=== PATIENT | male | born 1955 | race African-American/Black ===

== ENCOUNTER 2017-08-01 18:30 | Inpatient (IN) | payer OTHER ==
[~2017-08-01 18:30] MED LIST: Heparin 5,000 UNITS/ML VIAL ONE
[2017-08-01] MEDS ORDERED: Adacel (T-DAP) 0.5 ML VIAL ONE (18:40)
[2017-08-01] MEDS ORDERED: Fentanyl 100 MCG/2 ML VIAL ONE ×5 (18:50→21:59)
[2017-08-01] MEDS ORDERED: Midazolam HCl 2 mg/2 ml Vial ONE (18:54)
[2017-08-01 19:07] LABS: #Eosinphils 0.1 thou/uL (0.0-0.7); #Lymphocytes 1.2 thou/uL (1.20-3.40); #Monocytes 0.3 thou/uL (0.11-0.59); #Neutrophils 3.3 thou/uL (1.40-6.50); %Basophils 0.2 % (0.0-1.0); %Eosinophils 2.8 % (0.0-10.0); %Lymphocytes 24.1 % (21.0-51.0); %Monocytes 6.3 % (0.0-10.0); Hematocrit 35.7 % (42.0-52.0); Mean Platelet Volume 6.4 fL (7.4-10.4); Red Blood Cell (RBC) Count 3.52 mill/uL (4.70-6.10)
[2017-08-01 19:14] LABS: Bilirubin Negative (Negative); Blood, Urine Negative (Negative); Glucose, Urine (Dipstick) Negative (Negative); Ketone, Urine Negative (Negative); Nitrite Negative (Negative); Protein, Urine (Dipstick) 30 mg/dL (Neg-Trace); Urobilinogen 0.2 mg/dL (0.2-1.0)
[2017-08-01 19:15] LABS: PTT 25.1 SEC (22.9-36.1); Prothrombin Time 14.1 SEC (12.0-14.7)
[2017-08-01 19:16] LABS: Bacteria/HPF None Seen HPF (None Seen); Hyaline Casts/LPF 7-10 HYALINE CAST LPF (0-3 Hyaline); RBC/HPF 0-3 HPF (0-3); Squamous Epithelial 0-3 HPF (0-3); WBC/HPF 0-3 HPF (0-3)
[2017-08-01 19:20] LABS: Anion Gap 9 mmol/L (-14-95); Lactate 1.15 mmol/L (0.50-2.20); POC Est. GFR-MDRD-African-Amer 56 (2-60); POC Estimated GFR-MDRD 46 (2-60); T. Carbon Dioxide 26.8 mmol/L (1.0-85.0); pH (Venous) 7.309 (7.35-7.45); vO2 Saturation-calc 67.1 % (0.0-100.0)
[2017-08-01 19:23] LABS: ALT (SGPT) Less than 7 U/L (8-55); AST (SGOT) 10 U/L (5-34); Alkaline Phosphatase 41 U/L (40-150); Anion Gap 10 mmol/L (10-20); BUN (Urea Nitrogen) 12 mg/dL (8.4-25.7); Bilirubin, Total 0.2 mg/dL (0.2-1.2); Calc. Creatinine Clearance 0 mL/min (70-130); Calcium 7.9 mg/dL (7.8-10.44); Carbon Dioxide 23 mmol/L (23-31); Chloride 113 mmol/L (98-107); Estimated GFR-MDRD 54; Globulin 2.1 g/dL (2.4-3.5); Protein, Total 4.9 g/dL (5.8-8.1)
[2017-08-01] MEDS ORDERED: Propofol 200 MG/20 ML VIAL ONE ×3 (19:23→22:11)
[2017-08-01] MEDS ORDERED: Ketorolac Tromethamine 30 MG/ML VIAL ONE (19:23)
[2017-08-01] MEDS ORDERED: Ondansetron HCl/PF 4 MG/2 ML Vial ONE (19:23)
[2017-08-01] MEDS ORDERED: PHENYLEPHRINE-NS 100 MCG/ML 10 ML SYRINGE ONE ×2 (19:23→22:11)
[2017-08-01] MEDS ORDERED: Succinylcholine Chloride 20 MG/ML 10 ml SYRINGE FS ONE (19:23)
[2017-08-01] MEDS ORDERED: Lidocaine 2% PF 10 ML AMP (For Epidural Use) ONE (19:23)
[2017-08-01 19:29] LABS: Amphetamine Not Detected (NotDetected); Methadone Not Detected (NotDetected); Methamphetamine Not Detected (NotDetected)
[2017-08-01] MEDS ORDERED: Naloxone HCl 0.4 mg/ml Vial ONE (20:48)
[2017-08-01] MEDS ORDERED: Labetalol HCl 100 MG/20 ML VIAL ONE (20:56)
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
[2017-08-01] MEDS ORDERED: SUGAMMADEX SODIUM 200 MG/2 ML VIAL ONE (21:15)
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
[2017-08-01] MEDS ORDERED: Heparin 5,000 UNITS/ML VIAL ONE ×3 (21:48→22:18)
[2017-08-01] MEDS ORDERED: Glycopyrrolate 0.2 MG/ML 5 ML SYRINGE ONE (22:11)
[2017-08-01] MEDS ORDERED: Chloroprocaine HCl/PF 20 ML VIAL ONE (22:45)
[2017-08-01] MEDS ORDERED: Phenylephrine 10 MG/NS 250 ML 250 ML ONE (22:46)
[2017-08-01] MEDS ORDERED: Iothalamate Meglumine 60% 50 ML VIAL FS ONE (22:46)
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
[2017-08-02] MEDS ORDERED: Ondansetron ODT 4 MG TAB PO PRN (00:03)
[2017-08-02] MEDS ORDERED: Fentanyl 100 MCG/2 ML VIAL SLOW IVP PRN ×2 (00:03)
[2017-08-02] MEDS ORDERED: traMADol HCl 50 MG TAB PO PRN (00:03)
[2017-08-02] MEDS ORDERED: Dextrose 5% in Water 1,000 ML IV PRN ×2 (00:03→13:44)
[2017-08-02] MEDS ORDERED: Phenylephrine 10 MG/NS 250 ML 250 ML IVPB SCH (00:03)
[2017-08-02] MEDS ORDERED: Ondansetron HCl/PF 4 MG/2 ML Vial IVP PRN (00:03)
[2017-08-02] MEDS ORDERED: Dextrose 50% Abboject 50 ML SYRINGE SLOW IVP PRN ×2 (00:03→13:44)
[2017-08-02] MEDS ORDERED: Ibuprofen 600 MG TAB PO PRN (00:03)
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
[2017-08-02] MEDS ORDERED: Gabapentin 300 MG CAP PO SCH (00:30)
[2017-08-02] MEDS ORDERED: Famotidine 20 MG TAB PO SCH (00:30)
[2017-08-02] MEDS: Sodium Chloride 0.9% 1,000 ML IV SCH ×4 (00:39→22:02)
[2017-08-02] MEDS: Acetaminophen 500 MG TAB PO SCH ×6 (01:46→20:44)
[2017-08-02 04:33] VITALS: BMI 19.4
[2017-08-02 07:52] LABS: #Lymphocytes 0.7 thou/uL (1.20-3.40); #Monocytes 0.4 thou/uL (0.11-0.59); #Neutrophils 9.6 thou/uL (1.40-6.50); %Basophils 0.1 % (0.0-1.0); %Eosinophils 0.1 % (0.0-10.0); %Lymphocytes 6.3 % (21.0-51.0); %Monocytes 3.3 % (0.0-10.0); Hematocrit 37.2 % (42.0-52.0); Mean Platelet Volume 7.7 fL (7.4-10.4); White Blood Cell (WBC) Count 10.6 thou/uL (4.8-10.8)
[2017-08-02 08:06] LABS: Anion Gap 10 mmol/L (10-20); BUN (Urea Nitrogen) 13 mg/dL (8.4-25.7); Calc. Creatinine Clearance 50 mL/min (70-130); Calcium 7.2 mg/dL (7.8-10.44); Carbon Dioxide 20 mmol/L (23-31); Chloride 114 mmol/L (98-107); Estimated GFR-MDRD 67
[2017-08-02] MEDS ORDERED: FLU VACC QS2017-18 36 mo. & older 0.5 ML SYRINGE IM ONE (09:00)
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
[2017-08-02] MEDS: Famotidine 20 MG TAB PO SCH ×2 (11:10→20:44)
[2017-08-02] MEDS: Gabapentin 300 MG CAP PO SCH ×2 (11:10→20:45)
[2017-08-02] MEDS ORDERED: HumaLOG 300 UNITS/3 ML VIAL SC PRN (13:44)
[2017-08-02] MEDS ORDERED: diphenhydrAMINE HCl 25 MG CAP PO PRN (21:14)
[2017-08-03] MEDS: Acetaminophen 500 MG TAB PO SCH ×6 (00:37→20:50)
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
[2017-08-03] MEDS: traMADol HCl 50 MG TAB PO PRN ×3 (04:40→16:11)
[2017-08-03 05:19] LABS: #Basophils 0.1 thou/uL (0.0-0.2); #Eosinphils 0.2 thou/uL (0.0-0.7); #Lymphocytes 1.4 thou/uL (1.20-3.40); #Monocytes 0.3 thou/uL (0.11-0.59); #Neutrophils 5.2 thou/uL (1.40-6.50); %Basophils 0.7 % (0.0-1.0); %Eosinophils 2.3 % (0.0-10.0); %Lymphocytes 19.8 % (21.0-51.0); %Monocytes 4.4 % (0.0-10.0); Hematocrit 32.4 % (42.0-52.0); Red Blood Cell (RBC) Count 3.32 mill/uL (4.70-6.10); White Blood Cell (WBC) Count 7.1 thou/uL (4.8-10.8)
[2017-08-03 05:42] LABS: Anion Gap 9 mmol/L (10-20); BUN (Urea Nitrogen) 14 mg/dL (8.4-25.7); Calc. Creatinine Clearance 44 mL/min (70-130); Calcium 7.9 mg/dL (7.8-10.44); Carbon Dioxide 22 mmol/L (23-31); Chloride 115 mmol/L (98-107); Estimated GFR-MDRD 58; Magnesium 1.6 mg/dL (1.6-2.6)
[2017-08-03 05:51] LABS: Phosphorus 1.9 mg/dL (2.3-4.7)
[2017-08-03] MEDS: Gabapentin 300 MG CAP PO SCH ×2 (09:06→20:50)
[2017-08-03] MEDS: Famotidine 20 MG TAB PO SCH ×2 (09:06→20:50)
[2017-08-04] MEDS: Acetaminophen 500 MG TAB PO SCH ×6 (01:51→20:23)
[2017-08-04 05:58] LABS: #Eosinphils 0.3 thou/uL (0.0-0.7); #Lymphocytes 0.9 thou/uL (1.20-3.40); #Monocytes 0.4 thou/uL (0.11-0.59); #Neutrophils 7.8 thou/uL (1.40-6.50); %Basophils 0.3 % (0.0-1.0); %Eosinophils 2.9 % (0.0-10.0); %Lymphocytes 9.9 % (21.0-51.0); %Monocytes 4.1 % (0.0-10.0); Hematocrit 34.8 % (42.0-52.0); Mean Platelet Volume 7.1 fL (7.4-10.4); Red Blood Cell (RBC) Count 3.57 mill/uL (4.70-6.10); White Blood Cell (WBC) Count 9.4 thou/uL (4.8-10.8)
[2017-08-04] MEDS: Senokot S 8.6-50 MG TAB PO SCH ×2 (09:58→20:23)
[2017-08-04] MEDS: Polyethylene Glycol 3350 17 GM Packet PO SCH (09:58)
[2017-08-04] MEDS: Gabapentin 300 MG CAP PO SCH ×2 (09:58→20:23)
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
[2017-08-05] MEDS: traMADol HCl 50 MG TAB PO PRN ×2 (00:22→09:24)
[2017-08-05] MEDS: Acetaminophen 500 MG TAB PO SCH ×4 (00:50→13:01)
[2017-08-05] MEDS: Gabapentin 300 MG CAP PO SCH (09:23)
[2017-08-05] MEDS: Polyethylene Glycol 3350 17 GM Packet PO SCH (09:23)
[2017-08-05] MEDS: Senokot S 8.6-50 MG TAB PO SCH (09:23)
[2017-08-05 10:10] VITALS: TEMP 98.3
[2017-08-05 12:43] VITALS: BP 148/80
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
== END 2017-08-05 13:17 | disposition home or self-care (01) | DRG 907 ==
LOC: ERS 18:30 → EEVIPCON 23:24 → CCU 23:24 → SURG A 08-02 16:38
PROVIDERS: ADMIT Specialist; ATTEND Specialist
PROC: 03R Upper Arteries, Replacement (ICD-10-PCS; principal; 2017-08-01)
PROC: 06BQ0ZZ Excision of Left Saphenous Vein, Open Approach (ICD-10-PCS; 2017-08-01)
PROC: 03C70ZZ Extirpation of Matter from Right Brachial Artery, Open Approach (ICD-10-PCS; 2017-08-01)
PROC: 03WY07Z Revision of Autologous Tissue Substitute in Upper Artery, Open Approach (ICD-10-PCS; 2017-08-01)
PROC: 0JCD0ZZ Extirpation of Matter from Right Upper Arm Subcutaneous Tissue and Fascia, Open Approach (ICD-10-PCS; 2017-08-01)
PROC: 30233N1 Transfusion of Nonautologous Red Blood Cells into Peripheral Vein, Percutaneous Approach (ICD-10-PCS; 2017-08-01)
PROC: B31 Imaging, Upper Arteries, Fluoroscopy (ICD-10-PCS; 2017-08-01)
DX: S45.111A Laceration of brachial artery, right side, initial encounter (principal); T79.4XXA Traumatic shock, initial encounter; D62 Acute posthemorrhagic anemia; T82.868A Thrombosis due to vascular prosthetic devices, implants and grafts, initial encounter; S41.041A Puncture wound with foreign body of right shoulder, initial encounter; X95.9XXA Assault by unspecified firearm discharge, initial encounter; R13.10 Dysphagia, unspecified; Z88.0 Allergy status to penicillin; J44.9 Chronic obstructive pulmonary disease, unspecified; F17.210 Nicotine dependence, cigarettes, uncomplicated; I10 Essential (primary) hypertension
CPT/HCPCS: 36415; 36416; 36430; 51702; 76000; 80048; 80053; 80306; 81003; 81015; 82150; 82330; 82533; 82803; 83605; 83690; 83735; 84100; 85025; 85610; 85730; 86850; 86900; 86901; 90471; 90715; 94640; 96374; G0390; G8987-GO-CJ; G8988-GO-CI; G8996-GN-CI; G8997-GN-CI; J0690; J1644; J1885; J2001; J2250; J2310; J2400; J2405; J2704; J3010; J7050; J7620; P9016; P9045; Q9961

== ENCOUNTER 2017-08-10 10:45 | Emergency (ER) | payer OTHER ==
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
== END 2017-08-10 13:26 | disposition home or self-care (01) ==
LOC: ERS 10:45
DX: M79.621 Pain in right upper arm (principal); E05.90 Thyrotoxicosis, unspecified without thyrotoxic crisis or storm; I10 Essential (primary) hypertension; J44.9 Chronic obstructive pulmonary disease, unspecified; M06.9 Rheumatoid arthritis, unspecified; Z87.891 Personal history of nicotine dependence; Z79.891 Long term (current) use of opiate analgesic; Z79.899 Other long term (current) drug therapy

== ENCOUNTER 2017-10-08 11:26 | Emergency (ER) | payer OTHER ==
[2017-10-08] MEDS ORDERED: Naproxen 500 MG TAB ONE (12:46)
== END 2017-10-08 12:47 | disposition home or self-care (01) ==
LOC: ERS 11:26
DX: M79.601 Pain in right arm (principal); R20.0 Anesthesia of skin; E05.90 Thyrotoxicosis, unspecified without thyrotoxic crisis or storm; I10 Essential (primary) hypertension; J44.9 Chronic obstructive pulmonary disease, unspecified; Z87.891 Personal history of nicotine dependence
CPT/HCPCS: 99406

== ENCOUNTER 2017-11-15 07:58 | Emergency (ER) | payer OTHER ==
[2017-11-15 08:49] LABS: #Eosinphils 0.5 thou/uL (0.0-0.7); #Monocytes 0.3 thou/uL (0.11-0.59); %Basophils 1.2 % (0.0-1.0); %Eosinophils 13.3 % (0.0-10.0); %Monocytes 7.4 % (0.0-10.0); %Neutrophils 51.1 % (42.0-75.0); Hemoglobin 12.6 g/dL (14.0-18.0); Mean Corpuscular Hemoglobin 30.5 pg (27.0-31.0); Mean Corpuscular Volume 95.4 fl (80.0-94.0); Mean Platelet Volume 6.1 fL (7.4-10.4); Platelet Count 328 thou/uL (130-400); RBC Distribution Width 12.5 % (11.5-14.5); Red Blood Cell (RBC) Count 4.14 mill/uL (4.70-6.10); White Blood Cell (WBC) Count 3.8 thou/uL (4.8-10.8)
[2017-11-15 09:17] LABS: ALT (SGPT) 8 U/L (8-55); AST (SGOT) 13 U/L (5-34); Albumin 3.5 g/dL (3.4-4.8); Alkaline Phosphatase 49 U/L (40-150); Anion Gap 13 mmol/L (10-20); BUN (Urea Nitrogen) 14 mg/dL (8.4-25.7); Bilirubin, Total 0.3 mg/dL (0.2-1.2); Calc. Creatinine Clearance 0 mL/min (70-130); Calcium 9.7 mg/dL (7.8-10.44); Carbon Dioxide 29 mmol/L (23-31); Chloride 106 mmol/L (98-107); Estimated GFR-MDRD 63; Globulin 2.5 g/dL (2.4-3.5); Glucose 63 mg/dL (80-115); Potassium 3.9 mmol/L (3.5-5.1); Sodium 144 mmol/L (136-145)
[2017-11-15 09:20] LABS: CKMB 1.1 ng/mL (0-6.6); Troponin I Less than 0.010 ng/mL (< 0.028)
--- NOTE | 2017-11-15 09:38 | RAD ---
SINGLE VIEW OF THE CHEST: Comparison: 05-14-15 History: Dyspnea. FINDINGS: Single view of the chest shows a normal sized cardiomediastinal silhouette. There is no evidence of c onsolidation, mass, or pleural effusion. The bones are unremarkable. IMPRESSION: No evidence of acute cardiopulmonary disease. POS: [facility]
[2017-11-15] MEDS ORDERED: predniSONE 20 MG TAB ONE (11:16)
== END 2017-11-15 13:30 | disposition home or self-care (01) ==
LOC: ERS 07:58
DX: J44.9 Chronic obstructive pulmonary disease, unspecified (principal); R55 Syncope and collapse; I10 Essential (primary) hypertension
CPT/HCPCS: 36415; 71045; 80053; 82553; 84484; 85025; 93005; 94760; 96360; 96361; J7506

== ENCOUNTER 2017-12-11 09:09 | Emergency (ER) | payer OTHER ==
--- NOTE | 2017-12-11 10:23 | RAD ---
PORTABLE CHEST: HISTORY: Chest pain. COMPARISON: 11/15/17 study. FINDINGS: Heart size is within normal limits. There are some linear atelectatic changes in the lung bases. No focal infiltrative process. IMPRESSION: Linear atelectasis in the lung bases. POS: [facility]
[2017-12-11 10:32] LABS: #Eosinphils 0.2 thou/uL (0.0-0.7); #Lymphocytes 1.1 thou/uL (1.20-3.40); #Monocytes 0.4 thou/uL (0.11-0.59); #Neutrophils 2.8 thou/uL (1.40-6.50); %Basophils 0.5 % (0.0-1.0); %Lymphocytes 23.6 % (21.0-51.0); %Monocytes 9.1 % (0.0-10.0); %Neutrophils 61.7 % (42.0-75.0); Hemoglobin 13.2 g/dL (14.0-18.0); Mean Corpuscular HGB CONC 32.9 g/dL (32.0-36.0); Mean Corpuscular Hemoglobin 30.9 pg (27.0-31.0); Mean Corpuscular Volume 93.9 fl (80.0-94.0); Mean Platelet Volume 6.7 fL (7.4-10.4); Platelet Count 262 thou/uL (130-400); RBC Distribution Width 12.5 % (11.5-14.5); Red Blood Cell (RBC) Count 4.26 mill/uL (4.70-6.10); White Blood Cell (WBC) Count 4.5 thou/uL (4.8-10.8)
[2017-12-11 10:55] LABS: ALT (SGPT) 9 U/L (8-55); AST (SGOT) 12 U/L (5-34); Albumin 3.9 g/dL (3.4-4.8); Alkaline Phosphatase 62 U/L (40-150); Anion Gap 13 mmol/L (10-20); BUN (Urea Nitrogen) 11 mg/dL (8.4-25.7); Bilirubin, Total 0.3 mg/dL (0.2-1.2); CK (CPK) 72 U/L (30-200); Calc. Creatinine Clearance 0 mL/min (70-130); Calcium 9.4 mg/dL (7.8-10.44); Carbon Dioxide 27 mmol/L (23-31); Chloride 104 mmol/L (98-107); Estimated GFR-MDRD 64; Glucose 94 mg/dL (80-115); Potassium 3.8 mmol/L (3.5-5.1); Protein, Total 6.9 g/dL (5.8-8.1); Sodium 140 mmol/L (136-145)
[2017-12-11 11:00] LABS: CKMB 1.2 ng/mL (0-6.6)
[2017-12-11] MEDS ORDERED: methylPREDNISolone Sod Succ/PF 125 MG/2 ML VIAL ONE (11:06)
[2017-12-11 11:08] LABS: Troponin I Less than 0.010 ng/mL (< 0.028)
== END 2017-12-11 12:55 | disposition home or self-care (01) ==
LOC: ERS 09:09
DX: J44.1 Chronic obstructive pulmonary disease with (acute) exacerbation (principal); I10 Essential (primary) hypertension; Z71.6 Tobacco abuse counseling
CPT/HCPCS: 71045; 80053; 82550; 82553; 84484; 85025; 93005; 94760; 96374; 99406; J2930

== ENCOUNTER 2017-12-15 08:59 | Emergency (ER) | payer OTHER ==
--- NOTE | 2017-12-15 09:35 | RAD ---
PA AND LATERAL VIEWS OF THE CHEST: HISTORY: Cough. FINDINGS: Comparison is made with the exam of 12/11/17. The heart size is normal. The aorta is tortuous. The lungs are expanded without confluent areas of consolidation, pneumothorax, or pleural effusions. Linear scarring is seen in the left lower lung. IMPRESSION: No radiographic evidence of acute cardiopulmonary process. POS: [facility]
== END 2017-12-15 09:48 | disposition home or self-care (01) ==
LOC: ERS 08:59
DX: R05 Cough (principal); I10 Essential (primary) hypertension
CPT/HCPCS: 71046

== ENCOUNTER 2017-12-19 12:50 | Outpatient (CLI) | payer OTHER | END 2017-12-19 12:51 | disposition home or self-care (01) | LOC: BICRAD 12:50 | PROVIDERS: ATTEND Internal Medicine | DX: M25.511 Pain in right shoulder (principal) ==

== ENCOUNTER 2018-05-18 13:01 | Emergency (ER) | payer OTHER | END 2018-05-18 14:27 | LOC: ERS 13:01 | DX: Z53.21 Procedure and treatment not carried out due to patient leaving prior to being seen by health care provider (principal) ==

== ENCOUNTER 2018-09-22 14:33 | Emergency (ER) | payer OTHER | END 2018-09-22 15:09 | disposition home or self-care (01) | LOC: ERS 14:33 | DX: M70.32 Other bursitis of elbow, left elbow (principal); R20.2 Paresthesia of skin; G89.29 Other chronic pain; I10 Essential (primary) hypertension; J44.9 Chronic obstructive pulmonary disease, unspecified; Z79.899 Other long term (current) drug therapy | CPT/HCPCS: 99283 ==

== ENCOUNTER 2019-03-12 13:18 | Emergency (ER) | payer OTHER | END 2019-03-12 14:07 | disposition home or self-care (01) | LOC: ERS 13:18 | DX: M25.561 Pain in right knee (principal); F17.210 Nicotine dependence, cigarettes, uncomplicated; I10 Essential (primary) hypertension | CPT/HCPCS: 99283 ==

== ENCOUNTER 2019-07-22 14:27 | Emergency (ER) | payer OTHER ==
[2019-07-22] MEDS ORDERED: Ketorolac Tromethamine 30 MG/ML VIAL ONE (15:48)
--- NOTE | 2019-07-22 16:23 | RAD ---
RIGHT SHOULDER THREE VIEWS: History: Sudden onset right shoulder and arm pain. Comparison: 12-19-17 FINDINGS: Degenerative changes are noted of the AC joint and glenohumeral joint. Subchondral cystic changes are noted involving the greater tuberosity. No acute fracture, dislocation, or other acute process. IMPRESSION: Degenerative and osteoarthrosis changes without other acute process. POS: [facility]
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
== END 2019-07-22 17:29 | disposition home or self-care (01) ==
LOC: ERS 14:27
DX: M79.601 Pain in right arm (principal); J44.9 Chronic obstructive pulmonary disease, unspecified; F17.210 Nicotine dependence, cigarettes, uncomplicated
CPT/HCPCS: 96372; J1885

== ENCOUNTER 2019-07-30 12:13 | Emergency (ER) | payer OTHER | END 2019-07-30 14:07 | disposition home or self-care (01) | LOC: ERS 12:13 | DX: M25.511 Pain in right shoulder (principal); J44.9 Chronic obstructive pulmonary disease, unspecified | CPT/HCPCS: 99281 ==

== ENCOUNTER 2020-03-18 14:45 | Inpatient (IN) | payer OTHER ==
[2020-03-18 15:47] LABS: #Eosinphils 0.2 thou/uL (0.0-0.7); #Lymphocytes 0.8 thou/uL (1.20-3.40); #Monocytes 0.3 thou/uL (0.11-0.59); #Neutrophils 1.7 thou/uL (1.40-6.50); %Basophils 0.9 % (0.0-1.0); %Eosinophils 7.5 % (0.0-10.0); %Lymphocytes 26.7 % (21.0-51.0); %Monocytes 9.6 % (0.0-10.0); %Neutrophils 55.4 % (42.0-75.0); Hemoglobin 14.7 g/dL (14.0-18.0); Mean Corpuscular HGB CONC 33.2 g/dL (32.0-36.0); Mean Corpuscular Hemoglobin 31.5 pg (27.0-31.0); Mean Corpuscular Volume 94.8 fL (78.0-98.0); Platelet Count 324 thou/uL (130-400); RBC Distribution Width 12.9 % (11.5-14.5); Red Blood Cell (RBC) Count 4.67 mill/uL (4.70-6.10); White Blood Cell (WBC) Count 3.1 thou/uL (4.8-10.8)
[2020-03-18 16:08] LABS: ALT (SGPT) 10 U/L (8-55); AST (SGOT) 15 U/L (5-34); Albumin 4.2 g/dL (3.4-4.8); Alkaline Phosphatase 62 U/L (40-110); Anion Gap 16 mmol/L (10-20); BUN (Urea Nitrogen) 14 mg/dL (8.4-25.7); Bilirubin, Total 0.3 mg/dL (0.2-1.2); Calc. Creatinine Clearance 0 mL/min (70-130); Calcium 9.3 mg/dL (7.8-10.44); Carbon Dioxide 22 mmol/L (23-31); Chloride 107 mmol/L (98-107); Estimated GFR-MDRD 43; Glucose 64 mg/dL (80-115); Potassium 4.1 mmol/L (3.5-5.1); Protein, Total 7.2 g/dL (5.8-8.1); Sodium 141 mmol/L (136-145)
[2020-03-18 16:13] LABS: CKMB 1.4 ng/mL (0-6.6)
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
[2020-03-18] MEDS ORDERED: Aspirin Chewable 81 MG TAB ONE (19:44)
[2020-03-18 21:33] VITALS: BMI 19.1
[2020-03-18] MEDS: Sodium Chloride 0.9% 1,000 ML IV SCH (22:15)
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
[2020-03-19 05:11] LABS: #Basophils 0.1 thou/uL (0.0-0.2); #Eosinphils 0.4 thou/uL (0.0-0.7); #Lymphocytes 1.7 thou/uL (1.20-3.40); #Monocytes 0.3 thou/uL (0.11-0.59); #Neutrophils 1.1 thou/uL (1.40-6.50); %Basophils 1.7 % (0.0-1.0); %Eosinophils 10.3 % (0.0-10.0); %Lymphocytes 46.9 % (21.0-51.0); %Monocytes 9.4 % (0.0-10.0); %Neutrophils 31.8 % (42.0-75.0); Hemoglobin 13.6 g/dL (14.0-18.0); Mean Corpuscular HGB CONC 32.7 g/dL (32.0-36.0); Mean Corpuscular Volume 94.9 fL (78.0-98.0); Mean Platelet Volume 6.8 fL (7.4-10.4); Platelet Count 307 thou/uL (130-400); RBC Distribution Width 12.7 % (11.5-14.5); Red Blood Cell (RBC) Count 4.39 mill/uL (4.70-6.10); White Blood Cell (WBC) Count 3.6 thou/uL (4.8-10.8)
[2020-03-19 05:36] LABS: Anion Gap 8 mmol/L (10-20); BUN (Urea Nitrogen) 13 mg/dL (8.4-25.7); Calc. Creatinine Clearance 45 mL/min (70-130); Carbon Dioxide 24 mmol/L (23-31); Cardiac Risk 3.1 (Less than 4.5); Chloride 113 mmol/L (98-107); Cholesterol 156 mg/dl (< 200 Desired); Estimated GFR-MDRD 66; HDL Cholesterol 51 mg/dL (>60 Neg Risk); LDL Cholesterol, Calculated 95 mg/dL; Potassium 3.9 mmol/L (3.5-5.1); Sodium 141 mmol/L (136-145); Triglycerides 52 mg/dL (Less than 150)
[2020-03-19 05:41] LABS: Glucose 55 mg/dL (80-115)
[2020-03-19] MEDS ORDERED: Aspirin 81 mg Enteric Coated Tablet PO SCH (09:00)
[2020-03-19] MEDS: Sodium Chloride 0.9% 1,000 ML IV SCH ×2 (09:14→21:26)
[2020-03-19] MEDS: Acetaminophen 325 MG TAB PO PRN ×2 (09:16→21:26)
[2020-03-19 11:54] LABS: Amphetamine Not Detected (NotDetected); Barbiturates Screen Not Detected (NotDetected); Benzodiazepine Screen Not Detected (NotDetected); Cocaine Metabolite Screen Detected (NotDetected); Medtox Control Line Valid? VALID (VALID); Medtox Reader # READER 4; Methadone Not Detected (NotDetected); Methamphetamine Not Detected (NotDetected); Opiate Screen Not Detected (NotDetected); Oxycodone Screen Not Detected (NotDetected); Phencyclidine (PCP) Not Detected (NotDetected); THC/Cannabinoid Screen Not Detected (NotDetected); Tricyclic Screen Not Detected (NotDetected)
--- NOTE | 2020-03-19 12:33 | MRI ---
MRI BRAIN WITHOUT CONTRAST: HISTORY: Right-sided weakness. FINDINGS: Correlation is made with the previous day's CT scan. No restricted diffusion is seen. There is encephalomalacia in the right temporo-occipital lobe and t he medial right cerebellar hemisphere consistent with old infarctions. Old lacunar infarction is als o seen in the left internal capsule. There is surrounding blooming artifact on the gradient echo seq uences which may be due to hemosiderin or calcium deposition. A small focus of blooming is also seen in the right internal capsule likely representing a similar process. No evidence of acute infarct, acute hemorrhage, midline shift, or abnormal extraaxial fluid collection is seen. There is mucosal d isease in the paranasal sinuses. IMPRESSION: No evidence of acute intracranial process. POS: [facility]
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
--- NOTE | 2020-03-19 15:28 | RAD ---
TWO VIEWS RIGHT SHOULDER: 03/19/20 PROVIDED CLINICAL HISTORY: Trauma. FINDINGS: There is no evidence for fracture or other acute osseous abnormality. If there is persistent clinical concern, conservative management and follow-up imaging are advised. IMPRESSION: As above. POS: [facility]
--- NOTE | 2020-03-19 19:31 | PDOC.HOSPP ---
- Subjective Encounter Date: 03/19/20 Encounter Time: 07:00 Subjective: overnight asymptomatic hypoglycemia. This morning, feeling better, pain acute on chronic right shoulder, can move right lower extremity more - Objective Vital Signs & Weight: Vital Signs (12 hours) Temp Pulse Pulse Pulse Resp BP BP 03/19/20 15:44 97.8 F 60 16 03/19/20 11:40 97.7 F 59 L 18 03/19/20 08:48 64 59 L 125/74 119/76 03/19/20 07:47 97.8 F 59 L 14 BP Pulse Ox 03/19/20 15:44 105/62 98 03/19/20 11:40 133/74 97 03/19/20 08:48 03/19/20 07:47 128/71 99 Weight Weight 126 lb I&O: 03/18/20 03/19/20 03/20/20 06:59 06:59 06:59 Intake Total 900 Output Total 1250 Balance -350 Result Diagrams: 03/19/20 04:52 03/19/20 04:52 Additional Labs: Accuchecks 03/19/20 06:34 POC Glucose 136 H Hospitalist ROS - Review of Systems Constitutional: denies: fever, chills, sweats, weakness, malaise, other Respiratory: denies: cough, dry, shortness of breath, hemoptysis, SOB with excertion, pleuritic pain, sputum, wheezing, other Cardiovascular: denies: chest pain, palpitations, orthopnea, paroxysmal noc. dyspnea, edema, light headedness, other Gastrointestinal: denies: nausea, vomiting, abdominal pain, diarrhea, constipation, melena, hematochezia, other Genitourinary: denies: dysuria, frequency, incontinence, hematuria, retention, other Neurological: reports: weakness (right upper and lower extremity; right lower extremity improved) - Medication Medications: Active Medications Generic Name Dose Route Start Last Admin Trade Name Freq PRN Reason Stop Dose Admin Acetaminophen 650 mg 03/18/20 20:05 03/19/20 09:16 Tylenol PO 650 mg Q4H PRN Administration Headache/Fever/Mild Pain (1-3) Albuterol/Ipratropium 3 ml 03/19/20 06:30 03/19/20 07:07 Duoneb IPPB Not Given BID-RT KYLE Sodium Chloride 1,000 mls @ 75 mls/hr 03/18/20 20:15 03/19/20 09:14 Normal Saline 0.9% IV 1,000 mls .[id number] KYLE Administration - Exam General Appearance: NAD, awake alert ENT - other findings: poor denitition Heart: RRR, no murmur, no gallops, no rubs Respiratory: CTAB, no wheezes, no rales, no ronchi Gastrointestinal: soft, non-tender, non-distended, normal bowel sounds Extremities: no edema Extremities - other findings: no right shoulder dislocation appreciated Neurological - other findings: Left: upper and lower exremity / RUE: pain limiting RLE: 2/ Psychiatric: normal affect, normal behavior, A&O x 3 Hosp A/P - Plan #ischemic stroke -UDS +ve for cocaine -echo, MRI showing no acute findings; MRI showing old right sided encephalomalacia that does not correspond to presentation -mild reported improvement on RLE -likely cocaine-induced -aspirin, statin -evaluation for rehab
[2020-03-19] MEDS: Atorvastatin Calcium 40 MG TAB PO SCH (21:26)
--- NOTE | 2020-03-19 21:29 | ULT ---
BILATERAL CAROTID DUPLEX ULTRASOUND: HISTORY: Stroke COMPARISON: 05/15/2015 TECHNIQUE: Grayscale, color-flow and spectral Doppler ultrasound imaging of the extracranial carotid artery syst ems and vertebral arteries was performed bilaterally. FINDINGS: No large amount of echogenic plaque is seen involving the common carotid or internal carotid arteries . The peak systolic velocity in the right ICA measures 76.0 cm/s. The peak systolic velocity in the ri ght CCA measures 72.9 cm/s. The peak systolic velocity in the left ICA measures 64.0 cm/s. The peak systolic velocity in the l eft CCA measures 100.4 cm/s. The right IC/CC ration is1.0. The left IC/CC ratio is 0.6. Vertebral flow: antegrade, bilaterally. . IMPRESSION: No hemodynamically significant stenosis of of either carotid artery
[2020-03-20 05:14] LABS: #Eosinphils 0.4 thou/uL (0.0-0.7); #Lymphocytes 1.4 thou/uL (1.20-3.40); #Monocytes 0.3 thou/uL (0.11-0.59); #Neutrophils 1.3 thou/uL (1.40-6.50); %Basophils 1.4 % (0.0-1.0); %Eosinophils 10.2 % (0.0-10.0); %Lymphocytes 41.8 % (21.0-51.0); %Monocytes 7.4 % (0.0-10.0); %Neutrophils 39.3 % (42.0-75.0); Hemoglobin 13.1 g/dL (14.0-18.0); Mean Corpuscular HGB CONC 31.6 g/dL (32.0-36.0); Mean Corpuscular Hemoglobin 30.4 pg (27.0-31.0); Mean Corpuscular Volume 96.3 fL (78.0-98.0); Mean Platelet Volume 6.9 fL (7.4-10.4); Platelet Count 306 thou/uL (130-400); RBC Distribution Width 12.9 % (11.5-14.5); Red Blood Cell (RBC) Count 4.29 mill/uL (4.70-6.10); White Blood Cell (WBC) Count 3.4 thou/uL (4.8-10.8)
[2020-03-20 05:38] LABS: Anion Gap 8 mmol/L (10-20); BUN (Urea Nitrogen) 11 mg/dL (8.4-25.7); Calc. Creatinine Clearance 43 mL/min (70-130); Carbon Dioxide 27 mmol/L (23-31); Chloride 108 mmol/L (98-107); Estimated GFR-MDRD 62; Glucose 82 mg/dL (80-115); Potassium 3.9 mmol/L (3.5-5.1); Sodium 139 mmol/L (136-145)
[2020-03-20] MEDS: Acetaminophen 325 MG TAB PO PRN (08:20)
[2020-03-20] MEDS: Aspirin 325 MG TAB PO SCH (08:20)
--- NOTE | 2020-03-20 11:26 | PDOC.HOSPP ---
- Subjective Encounter Date: 03/20/20 Subjective: NEUROLOGY PROGRESS NOTE Episode of hypoglycemia overnight. - Objective Vital Signs & Weight: Vital Signs (12 hours) Temp Pulse Resp BP BP Pulse Ox 03/20/20 09:06 130/76 03/20/20 08:35 60 14 98 03/20/20 08:20 97 03/20/20 07:40 97.5 F L 59 L 16 114/70 97 03/20/20 04:00 98.4 F 62 18 120/74 99 03/19/20 23:45 98.5 F 65 18 112/63 98 Weight Weight 126 lb I&O: 03/19/20 03/20/20 03/21/20 06:59 06:59 06:59 Intake Total 900 Output Total 1800 Balance -900 Result Diagrams: 03/20/20 04:59 03/20/20 04:59 Radiology Reviewed by me: Yes EKG Reviewed by me: Yes Hospitalist ROS - Review of Systems Constitutional: denies: fever, chills, sweats, weakness, malaise, other Eyes: denies: pain, vision change, conjunctivae inflammation, eyelid inflammation, redness, other ENT: denies: ear pain, ear discharge, nose pain, nose discharge, nose congestion , mouth pain, mouth swelling, throat pain, throat swelling, other Respiratory: denies: cough, dry, shortness of breath, hemoptysis, SOB with excertion, pleuritic pain, sputum, wheezing, other Cardiovascular: denies: chest pain, palpitations, orthopnea, paroxysmal noc. dyspnea, edema, light headedness, other Gastrointestinal: denies: nausea, vomiting, abdominal pain, diarrhea, constipation, melena, hematochezia, other Musculoskeletal: denies: neck pain, shoulder pain, arm pain, back pain, hand pain, leg pain, foot pain, other Neurological: reports: weakness, numbness. denies: incoordination, change in speech, confusion, seizures, other - Medication Medications: Active Medications Generic Name Dose Route Start Last Admin Trade Name Freq PRN Reason Stop Dose Admin Acetaminophen 650 mg 03/18/20 20:05 03/20/20 08:20 Tylenol PO 650 mg Q4H PRN Administration Headache/Fever/Mild Pain (1-3) Albuterol/Ipratropium 3 ml 03/19/20 06:30 03/20/20 08:35 Duoneb IPPB 3 ml BID-RT KYLE Administration Aspirin 325 mg 03/20/20 09:00 03/20/20 08:20 Aspirin PO 325 mg DAILY KYLE Administration Atorvastatin Calcium 80 mg 03/19/20 21:00 03/19/20 21:26 Lipitor PO 80 mg HS KYLE Administration Sodium Chloride 1,000 mls @ 75 mls/hr 03/18/20 20:15 03/19/20 21:26 Normal Saline 0.9% IV 1,000 mls .[id number] KYLE Administration - Exam General Appearance: NAD, awake alert Eye: PERRL ENT: normocephalic atraumatic, no oropharyngeal lesions, moist mucosa Neck: supple Heart: RRR Respiratory: CTAB Gastrointestinal: soft Extremities: no cyanosis Skin: normal turgor, no lesions Neurological: cranial nerve grossly intact, no new deficit, hemiplegia Neurological - other findings: right hemiparesis Musculoskeletal: normal tone, no muscle wasting Psychiatric: normal affect, normal behavior, A&O x 3, oriented to person, oriented to place, oriented to time Hosp A/P (1) Syncope due to orthostatic hypotension Code(s): I95.1 - ORTHOSTATIC HYPOTENSION Status: Acute (2) CKD (chronic kidney disease), stage III Status: Acute (3) COPD (chronic obstructive pulmonary disease) Status: Acute (4) Cocaine abuse Code(s): F14.10 - COCAINE ABUSE, UNCOMPLICATED Status: Acute (5) TIA (transient ischemic attack) Code(s): G45.9 - TRANSIENT CEREBRAL ISCHEMIC ATTACK, UNSPECIFIED Status: Acute - Plan PT/OT, speech therapy 65 year old with an episode of loss of consciousness. Concern for TIA, SEIZURE OR SYNCOPE. MRI brain reviewed which did not reveal acute intracranial pathology. Carotid dopplers did not reveal hemodynamically significant stenosis. UDS Postive for cocaine Echo did not reveal thrombus or PFO. EEG ongoing. Will follow up on results. Strict control pof BP and BG. Neurochecks every 4 hours. Continue aspirin and stain for secondary stroke prevention. Continue home medications. Continue medical management per primary team.
--- NOTE | 2020-03-20 15:05 | EEG ---
Referring Physician: Liz PADRON EEG # [id number] TEST TYPE: EXTENDED [facility] VIDEO EEG REPORT: This EEG was performed using 24 channel [employer] video digital EEG with 24 disc electrodes. This was an extended 2 hrs 53 minute inpatient video EEG recording. Digital analysis of the EEG was done with spike and seizure detection which revealed no abnormalities BACKGROUND: Posterior background rhythm is 8.5 hz. Minimal reactivity seen to eyes opening and eye closure HYPERVENTILATION: Not perform PHOTIC STIMULATION: No significant response was seen with photic stimulation SLEEP: Drowsiness and sleep are observed. EEG DIAGNOSIS: 1) Nonsustained posterior background rhythm. CLINICAL INTERPRETATION: THIS EEG IS CONSISTENT WITH MODERATE GENERALIZED NONSPECIFIC CEREBRAL DYSFUNCTION. NO ICTAL OR INTERICTAL EPILEPTIFORM ABNORMALITIES SEEN DURING THE RECORDING. Realtime Court Reporter:fidel Fur Blowing Machine Operator: DEO ROSE
[2020-03-20] MEDS: Sodium Chloride 0.9% 1,000 ML IV SCH ×2 (15:19→18:27)
--- NOTE | 2020-03-20 15:29 | EKG ---
Test Reason : Blood Pressure : / mmHG Vent. Rate : 072 BPM Atrial Rate : 072 BPM P-R Int : 138 ms QRS Dur : 098 ms QT Int : 386 ms P-R-T Axes : 061 091 095 degrees QTc Int : 422 ms Normal sinus rhythm Rightward axis Incomplete right bundle branch block Nonspecific T wave abnormality Abnormal ECG Confirmed by MARY GARCIA DO ([id number]), editor farm journal AAYUSH BRIONES ([id number]) on 03/20/2020 3:29:23 PM Referred By: Confirmed By:MARY GARCIA DO
--- NOTE | 2020-03-20 18:18 | PDOC.HOSPP ---
- Subjective Encounter Date: 03/20/20 Encounter Time: 09:00 Subjective: no overnight events. this morning, strength improved. EEG pending. - Objective Vital Signs & Weight: Vital Signs (12 hours) Temp Pulse Pulse Pulse Resp BP BP 03/20/20 15:43 98.2 F 61 16 03/20/20 13:38 61 61 119/65 128/68 03/20/20 11:36 98 F 57 L 16 03/20/20 09:06 130/76 03/20/20 08:35 60 14 03/20/20 08:20 03/20/20 07:40 97.5 F L 59 L 16 BP Pulse Ox 03/20/20 15:43 122/70 98 03/20/20 13:38 03/20/20 11:36 121/71 97 03/20/20 09:06 03/20/20 08:35 98 03/20/20 08:20 97 03/20/20 07:40 114/70 97 Weight Weight 126 lb I&O: 03/19/20 03/20/20 03/21/20 06:59 06:59 06:59 Intake Total 900 1550 Output Total 1800 1000 Balance -900 550 Result Diagrams: 03/20/20 04:59 03/20/20 04:59 Hospitalist ROS - Review of Systems Constitutional: denies: fever, chills, sweats, weakness, malaise, other Respiratory: denies: cough, dry, shortness of breath, hemoptysis, SOB with excertion, pleuritic pain, sputum, wheezing, other Cardiovascular: denies: chest pain, palpitations, orthopnea, paroxysmal noc. dyspnea, edema, light headedness, other Gastrointestinal: denies: nausea, vomiting, abdominal pain, diarrhea, constipation, melena, hematochezia, other Neurological: reports: weakness - Medication Medications: Active Medications Generic Name Dose Route Start Last Admin Trade Name Freq PRN Reason Stop Dose Admin Acetaminophen 650 mg 03/18/20 20:05 03/20/20 08:20 Tylenol PO 650 mg Q4H PRN Administration Headache/Fever/Mild Pain (1-3) Albuterol/Ipratropium 3 ml 03/19/20 06:30 03/20/20 08:35 Duoneb IPPB 3 ml BID-RT KYLE Administration Aspirin 325 mg 03/20/20 09:00 03/20/20 08:20 Aspirin PO 325 mg DAILY KYLE Administration Atorvastatin Calcium 80 mg 03/19/20 21:00 03/19/20 21:26 Lipitor PO 80 mg HS KYLE Administration Sodium Chloride 1,000 mls @ 75 mls/hr 03/18/20 20:15 03/20/20 15:19 Normal Saline 0.9% IV Not Given .[id number] KYLE - Exam General Appearance: NAD, awake alert Heart: RRR, no murmur, no gallops, no rubs Respiratory: CTAB, no wheezes, no rales, no ronchi Gastrointestinal: soft, non-tender, non-distended, normal bowel sounds Extremities: no edema Extremities - other findings: right upper and lower extremities 3/5 improved compared to yesterday Neurological: cranial nerve grossly intact Psychiatric: normal affect, normal behavior, A&O x 3 Hosp A/P - Plan #ischemic stroke -UDS +ve for cocaine -echo, carotid u/s, MRI showing no acute findings; MRI showing old infarcts not consistent with presentation -RUE and RLE improvement (03/20); though patient has walker, hasn't had to use it in years -attempted to arrange inpatient rehab or some help at home; insurance doesn't cover -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
[2020-03-20] MEDS: Atorvastatin Calcium 40 MG TAB PO SCH (20:40)
[2020-03-20 21:44] LABS: HIV (1/2) Antibody/Antigen Non-Reactive (NonReactive); HIV 1/2 INDEX 0.07 S/CO (<1.00)
[2020-03-21] MEDS: Aspirin 325 MG TAB PO SCH (09:53)
[2020-03-21] MEDS: Acetaminophen 325 MG TAB PO PRN (09:53)
[2020-03-21 15:35] VITALS: TEMP 98
[2020-03-21 16:13] VITALS: BP 146/78
--- NOTE | 2020-03-21 16:35 | DIS ---
DATE OF ADMISSION: 03/18/2020 DATE OF DISCHARGE: 03/21/2020 PRIMARY CARE PROVIDER: [facility]. DISCHARGE DIAGNOSES: 1. Transient ischemic attack. 2. Cocaine use. 3. Acute on chronic stage 2 renal failure. CONDITION OF PATIENT ON THE DAY OF DISCHARGE: Stable. I assessed Mr. Baez on the day of discharge. He reports that his weakness has improved. Vital signs are stable. S1 and S2 are heard, regular. Lungs are clear to auscultation bilaterally. DISCHARGE MEDICATIONS: 1. Acetaminophen 500 mg one to two tablets every 4 hours as needed. 2. Albuterol HFA one puff every 6 hours as needed. 3. Aspirin 325 mg daily. 4. Atorvastatin 40 mg at bedtime. 5. Gabapentin 300 mg two times a day. CONSULTATIONS DURING THIS HOSPITALIZATION: Neurology, Dr. Suzanna Hunter. HOSPITAL COURSE: Mr. Baez is a pleasant 65-year-old gentleman, who was admitted to [facility] for a transient ischemic attack following a couple of episode. He was seen by Neurology Service. MRI of the brain did not show any evidence of an acute intracranial process. There were changes consistent with old infarctions. 2D echocardiogram showed left ventricular ejection fraction of 50% to 55%, grade 1/3 diastolic dysfunction, mild mitral regurgitation, and mild tricuspid regurgitation. Carotid Dopplers on March 19, 2020, did not show any hemodynamically significant stenosis of either carotid artery. He also had an EEG, which showed changes consistent with moderate generalized nonspecific cerebral dysfunction. There were no ictal or interictal epileptiform abnormalities. The patient was seen by Therapy Services. He was recommended inpatient rehab versus home with home health. design manager is trying to arrange for a home with home health because the patient could not go to inpatient rehab due to funding issues. The patient has been advised to stop cocaine use. In case the patient does not qualify for home health with PT and OT, he will likely need to go as outpatient to rehab. He will have to follow up with his primary care provider for a referral for the same. Postacute care followup: With primary care provider in 3 days. ACTIVITY: As tolerated. DIET: Heart healthy diet. DISCHARGE DESTINATION: Home. TIME SPENT: Total amount of time spent coordinating this discharge: 33 minutes. Job ID: [id number]
== END 2020-03-21 16:54 | disposition home or self-care (01) | DRG 69 ==
LOC: ERS 14:45 → OBSVTOIN 19:23 → 2SE 19:23
PROVIDERS: ADMIT Internal Medicine; ATTEND Internal Medicine
DX: G45.9 Transient cerebral ischemic attack, unspecified (principal); N17.9 Acute kidney failure, unspecified; G81.91 Hemiplegia, unspecified affecting right dominant side; I95.1 Orthostatic hypotension; E86.0 Dehydration; J44.9 Chronic obstructive pulmonary disease, unspecified; I12.9 Hypertensive chronic kidney disease with stage 1 through stage 4 chronic kidney disease, or unspecified chronic kidney disease; E16.2 Hypoglycemia, unspecified; N18.3 Chronic kidney disease, stage 3 (moderate); F14.10 Cocaine abuse, uncomplicated; Z87.891 Personal history of nicotine dependence; Z88.0 Allergy status to penicillin; Z88.8 Allergy status to other drugs, medicaments and biological substances
CPT/HCPCS: 36415; 36416; 70450; 70551; 80048; 80053; 80061; 80306; 80307; 82553; 83735; 83880; 84484; 85025; 87389; 93005; 93306; 93880; 95712; 95816; 95819; 95957; 96360; 96361; J7620

== ENCOUNTER 2020-08-03 12:55 | Emergency (ER) | payer OTHER ==
[2020-08-03 14:01] LABS: #Eosinphils 0.3 thou/uL (0.0-0.7); #Lymphocytes 1.2 thou/uL (1.20-3.40); #Monocytes 0.5 thou/uL (0.11-0.59); #Neutrophils 2.2 thou/uL (1.40-6.50); %Eosinophils 7.6 % (0.0-10.0); %Lymphocytes 29.4 % (21.0-51.0); %Monocytes 10.8 % (0.0-10.0); %Neutrophils 51.3 % (42.0-75.0); Hemoglobin 14.9 g/dL (14.0-18.0); Mean Corpuscular HGB CONC 34.3 g/dL (32.0-36.0); Mean Corpuscular Volume 93.3 fL (78.0-98.0); Mean Platelet Volume 6.9 fL (7.4-10.4); Platelet Count 285 thou/uL (130-400); RBC Distribution Width 12.5 % (11.5-14.5); Red Blood Cell (RBC) Count 4.66 mill/uL (4.70-6.10); White Blood Cell (WBC) Count 4.2 thou/uL (4.8-10.8)
[2020-08-03 14:23] LABS: ALT (SGPT) 7 U/L (8-55); AST (SGOT) 12 U/L (5-34); Alkaline Phosphatase 73 U/L (40-110); Anion Gap 14 mmol/L (10-20); BUN (Urea Nitrogen) 13 mg/dL (8.4-25.7); Bilirubin, Total 0.3 mg/dL (0.2-1.2); Calc. Creatinine Clearance 0 mL/min (70-130); Carbon Dioxide 25 mmol/L (23-31); Chloride 107 mmol/L (98-107); Estimated GFR-MDRD 47; Globulin 2.6 g/dL (2.4-3.5); Glucose 98 mg/dL (80-115); Protein, Total 6.6 g/dL (5.8-8.1); Sodium 142 mmol/L (136-145)
--- NOTE | 2020-08-03 14:31 | RAD ---
PORTABLE CHEST: Date: 08/03/2020 HISTORY: Shortness of breath. FINDINGS: Lung garcia are clear. Heart and mediastinum normal. Vasculature normal. IMPRESSION: No acute lung process. POS: [facility]
== END 2020-08-03 15:41 | disposition home or self-care (01) ==
LOC: ERS 12:55
DX: R07.89 Other chest pain (principal); J44.9 Chronic obstructive pulmonary disease, unspecified; I10 Essential (primary) hypertension; F17.210 Nicotine dependence, cigarettes, uncomplicated
CPT/HCPCS: 36415; 71045; 80053; 83880; 84484; 85025; 85379; 93005

== ENCOUNTER 2020-09-09 11:34 | Emergency (ER) | payer OTHER | END 2020-09-09 12:35 | LOC: EEVIPCON 11:34 → ERS 11:34 | DX: Z76.5 Malingerer [conscious simulation] (principal); J44.9 Chronic obstructive pulmonary disease, unspecified; I10 Essential (primary) hypertension; F17.210 Nicotine dependence, cigarettes, uncomplicated | CPT/HCPCS: 99283 ==

== ENCOUNTER 2021-06-17 17:00 | Emergency (ER) | payer OTHER ==
[2021-06-17 18:19] LABS: #Eosinphils 0.2 thou/uL (0.0-0.7); #Lymphocytes 1.6 thou/uL (1.20-3.40); #Monocytes 0.4 thou/uL (0.11-0.59); #Neutrophils 1.9 thou/uL (1.40-6.50); %Basophils 0.9 % (0.0-1.0); %Eosinophils 5.6 % (0.0-10.0); %Lymphocytes 37.5 % (21.0-51.0); %Monocytes 10.3 % (0.0-10.0); %Neutrophils 45.7 % (42.0-75.0); Hemoglobin 13.9 g/dL (14.0-18.0); Mean Corpuscular HGB CONC 32.2 g/dL (32.0-36.0); Mean Corpuscular Hemoglobin 29.5 pg (27.0-31.0); Mean Corpuscular Volume 91.7 fL (78.0-98.0); Mean Platelet Volume 6.6 fL (7.4-10.4); Platelet Count 357 thou/uL (130-400); RBC Distribution Width 13.7 % (11.5-14.5); Red Blood Cell (RBC) Count 4.72 mill/uL (4.70-6.10); White Blood Cell (WBC) Count 4.2 thou/uL (4.8-10.8)
[2021-06-17 19:14] LABS: ALT (SGPT) 9 U/L (8-55); AST (SGOT) 13 U/L (5-34); Albumin 4.2 g/dL (3.4-4.8); Alkaline Phosphatase 70 U/L (40-110); Anion Gap 14 mmol/L (10-20); BUN (Urea Nitrogen) 10 mg/dL (8.4-25.7); Bilirubin, Total 0.3 mg/dL (0.2-1.2); Calc. Creatinine Clearance 0 mL/min (70-130); Calcium 9.8 mg/dL (7.8-10.44); Carbon Dioxide 24 mmol/L (23-31); Chloride 107 mmol/L (98-107); Glucose 86 mg/dL (80-115); Potassium 4.3 mmol/L (3.5-5.1); Protein, Total 7.2 g/dL (5.8-8.1); Sodium 141 mmol/L (136-145)
[2021-06-17] MEDS ORDERED: predniSONE 20 MG TAB ONE (20:14)
[2021-06-17 21:42] LABS: Troponin I Less than 0.010 ng/mL (< 0.028)
== END 2021-06-17 22:45 | disposition home or self-care (01) ==
LOC: ERS 17:00
DX: J44.1 Chronic obstructive pulmonary disease with (acute) exacerbation (principal); R10.32 Left lower quadrant pain; R10.13 Epigastric pain; F17.210 Nicotine dependence, cigarettes, uncomplicated; I10 Essential (primary) hypertension; Z86.73 Personal history of transient ischemic attack (TIA), and cerebral infarction without residual deficits
CPT/HCPCS: 36415; 71045; 74176; 80053; 83690; 84484; 85025; 93005; 94640; J7512; J7620

== ENCOUNTER 2021-08-19 11:10 | Emergency (ER) | payer OTHER ==
[2021-08-19] MEDS ORDERED: Acetaminophen 325 MG TAB ONE (12:43)
== END 2021-08-19 12:54 | disposition home or self-care (01) ==
LOC: ERS 11:10
DX: M25.512 Pain in left shoulder (principal); I10 Essential (primary) hypertension; J44.9 Chronic obstructive pulmonary disease, unspecified; F17.210 Nicotine dependence, cigarettes, uncomplicated; W19.XXXA Unspecified fall, initial encounter

== ENCOUNTER 2022-08-05 20:44 | Emergency (ER) | payer OTHER | END 2022-08-05 23:51 | disposition home or self-care (01) | LOC: ERS 20:44 | DX: S00.83XA Contusion of other part of head, initial encounter (principal); S63.501A Unspecified sprain of right wrist, initial encounter; I10 Essential (primary) hypertension; F17.210 Nicotine dependence, cigarettes, uncomplicated; J44.9 Chronic obstructive pulmonary disease, unspecified; V49.10XA Passenger injured in collision with unspecified motor vehicles in nontraffic accident, initial encounter; Y92.410 Unspecified street and highway as the place of occurrence of the external cause | CPT/HCPCS: 70450; 71045; 72125 ==

== ENCOUNTER 2023-01-10 13:18 | Emergency (ER) | payer OTHER ==
[2023-01-10] MEDS ORDERED: Acetaminophen 500 MG TAB ONE (15:55)
== END 2023-01-10 15:57 | disposition home or self-care (01) ==
LOC: ERS 13:18
DX: S63.501A Unspecified sprain of right wrist, initial encounter (principal); M06.9 Rheumatoid arthritis, unspecified; I10 Essential (primary) hypertension; J44.9 Chronic obstructive pulmonary disease, unspecified; F17.210 Nicotine dependence, cigarettes, uncomplicated